=== PATIENT | male | born 1950 | race Caucasian/White ===

== ENCOUNTER 2017-06-23 11:48 | Day surgery (SDC) | payer MEDICARE, OTHER ==
[~2017-06-23] VITALS: Ht 180.3 cm; Wt 91.6 kg
[2017-06-23] VITALS (10 sets, daily range): BP systolic 98–1250; BP diastolic 62–82; PULSE 68–88; TEMP 97.8–98.3
[2017-06-23] MEDS ORDERED: PRINZIDE 25 MG-1 TAB PO (12:52)
[2017-06-23] MEDS ORDERED: ADDERALL XR30 MG PO (12:52)
[2017-06-23] MEDS ORDERED: ZOLOFT 100MG100 MG PO (12:53)
[2017-06-23] MEDS ORDERED: ZOCOR 20MG20 MG PO (12:53)
[2017-06-23] MEDS ORDERED: PRILOSEC 20MG20 MG PO (12:54)
[2017-06-23] MEDS ORDERED: TESSALON P100 MG/CAP PO (12:54)
[2017-06-24 00:37] VITALS: BP 108/60; PULSE 83; TEMP 98.3
[2017-06-24 04:00] VITALS: BP 106/64; PULSE 81; TEMP 97.5
[2017-06-24 09:25] VITALS: BP 137/75; PULSE 80; TEMP 97.7
[2017-06-24 14:06] VITALS: BP 118/82; PULSE 84; TEMP 98.3
== END 2017-06-24 17:35 | disposition home or self-care (01) ==
LOC: SDCO 11:48 → SURG 16:30 → SDCO 06-24 17:35
DX: C67.4 Malignant neoplasm of posterior wall of bladder (principal); K21.9 Gastro-esophageal reflux disease without esophagitis; Z86.73 Personal history of transient ischemic attack (TIA), and cerebral infarction without residual deficits; F17.210 Nicotine dependence, cigarettes, uncomplicated; F90.9 Attention-deficit hyperactivity disorder, unspecified type; I10 Essential (primary) hypertension; F32.9 Major depressive disorder, single episode, unspecified; Z68.27 Body mass index [BMI] 27.0-27.9, adult
CPT/HCPCS: OP; J0690; J1100; J2270; J2405; J2704; J3010; J7120; J9280; Q9967

== ENCOUNTER 2018-04-02 21:26 | Inpatient (IN) | payer MEDICARE, OTHER ==
[~2018-04-02] VITALS: Ht 180.3 cm; Wt 96.2 kg
[~2018-04-02 21:26] MED LIST: ADDERALL XR30 MG PO; PRILOSEC 20MG20 MG PO; PRINZIDE 25 MG-1 TAB PO; TESSALON P100 MG/CAP PO; ZOCOR 20MG20 MG PO; ZOLOFT 100MG100 MG PO
[2018-04-02 21:55] LABS: ARTERIAL BLD GAS O2 SATURATION 96.3 % (92-100); ARTERIAL BLD GAS TCO2 CT 27.5; ARTERIAL BLOOD GAS BASE EXCESS 2.8 (-2-2); ARTERIAL BLOOD GAS HCO3 26.3 meq/L (22-26); ARTERIAL BLOOD GAS PCO2 37.2 mmHg (35-45); ARTERIAL BLOOD GAS PO2 85.3 mmHg (80-100); ARTERIAL BLOOD GAS pH 7.47 (7.35-7.45)
[2018-04-02 21:58] LABS: BASO % 0.1 % (0.0-2.0); GRAN # 7.3 (1.4-6.5); HEMATOCRIT 45.3 % (42.0-52.0); HEMOGLOBIN 15.8 g/dl (13.5-18.0); LYMPH # 1.4 (1.2-3.4); LYMPH % 14.3 % (20.0-51.0); MEAN CELL VOLUME 94 fl (80.0-100.0); MEAN CORPUSCULAR HEMOGLOBIN 33 pg (27.0-31.0); MEAN CORPUSCULAR HGB CONC 35 g/dl (33.0-37.0); MEAN PLATELET VOLUME 11.8 fl (7.4-10.4); MONO # 0.9 (0.1-0.6); MONO % 9.2 % (1.7-9.3); PLATELET COUNT 119 K/mm3 (130-400); RED BLOOD COUNT 4.81 M/mm3 (4.20-5.60); REDCELL DISTRIBUTION WIDTH-CV 13.9 % (11.5-14.5)
[2018-04-02 22:05] LABS: INR 1.3 (0.8-3.0); PROTHROMBIN TIME 14.8 SECONDS (9.7-12.8)
[2018-04-02 22:06] LABS: ALANINE AMINOTRANSFERASE 46 U/L (21-72); ALBUMIN 4.3 gm/dL (3.5-5.0); ALKALINE PHOSPHATASE 78 U/L (50-136); ANION GAP 10 mmol/L (7-16); AST,SGOT 43 U/L (15-37); BILIRUBIN,TOTAL 1.2 mg/dL (0.0-1.0); BLOOD UREA NITROGEN 18 mg/dL (9-20); CALCIUM 8.5 mg/dL (8.4-10.2); CARBON DIOXIDE 32 mmol/L (22-30); CHLORIDE 92 mmol/L (98-107); CREATININE, serum 0.74 mg/dL (0.66-1.25); GLUCOSE 123 mg/dL (74-106); POTASSIUM 3.3 mmol/L (3.4-5.0); SODIUM 134 mmol/L (137-145); TOTAL PROTEIN 7.8 gm/dL (6.4-8.2)
[2018-04-02 22:17] LABS: TROPONIN-I < 0.012 ng/mL (0.000-0.034)
[2018-04-02] MEDS ORDERED: STRATTERA 10MG10 MG (22:29)
[2018-04-03] VITALS (8 sets, daily range): BP systolic 112–163; BP diastolic 59–68; PULSE 66–92; TEMP 97.4–99.2
[2018-04-03 05:46] LABS: BASO % 0.1 % (0.0-2.0); GRAN # 6.2 (1.4-6.5); GRAN % 86.8 % (42.2-75.2); HEMATOCRIT 43.9 % (42.0-52.0); HEMOGLOBIN 14.9 g/dl (13.5-18.0); LYMPH # 0.8 (1.2-3.4); LYMPH % 10.7 % (20.0-51.0); MEAN CELL VOLUME 95 fl (80.0-100.0); MEAN CORPUSCULAR HEMOGLOBIN 32 pg (27.0-31.0); MEAN CORPUSCULAR HGB CONC 34 g/dl (33.0-37.0); MEAN PLATELET VOLUME 12.7 fl (7.4-10.4); MONO # 0.2 (0.1-0.6); MONO % 2.1 % (1.7-9.3); PLATELET COUNT 115 K/mm3 (130-400); RED BLOOD COUNT 4.61 M/mm3 (4.20-5.60)
[2018-04-03 06:06] LABS: CALCIUM 8.3 mg/dL (8.4-10.2); CHOLESTEROL RISK RATIO 5.2; CREATININE, serum 0.9 mg/dL (0.66-1.25); MAGNESIUM 2.7 mg/dL (1.6-2.3); POTASSIUM 3.5 mmol/L (3.4-5.0)
[2018-04-03 07:09] LABS: BAND 25 % (0-10); LYMPHOCYTE 9 % (20.0-51.0); NEUTROPHILS 66 % (42.0-75.2); PLATELET ESTIMATE DECREASED (NORMAL)
[2018-04-04 04:16] VITALS: BP 113/54; PULSE 79; TEMP 97.6
[2018-04-04 07:34] VITALS: BP 120/61; PULSE 73; TEMP 97.8
[2018-04-04 10:56] LABS: CREATININE, serum 0.9 mg/dL (0.66-1.25); POTASSIUM 3.8 mmol/L (3.4-5.0)
[2018-04-04 11:04] VITALS: BP 119/57; PULSE 80; TEMP 97.9
[2018-04-04 15:11] VITALS: BP 117/55; PULSE 85; TEMP 98.5
[2018-04-04 20:10] VITALS: BP 103/77; PULSE 87; TEMP 97.3
[2018-04-05 00:48] VITALS: BP 135/82; PULSE 65; TEMP 97.5
[2018-04-05 03:50] VITALS: BP 133/57; PULSE 89; TEMP 97.7
[2018-04-05 07:22] VITALS: BP 120/62; PULSE 77; TEMP 97.9
[2018-04-05 07:59] LABS: CALCIUM 9.1 mg/dL (8.4-10.2); CREATININE, serum 0.85 mg/dL (0.66-1.25); POTASSIUM 3.1 mmol/L (3.4-5.0)
[2018-04-05 09:53] LABS: HEMOGLOBIN 13.6 g/dl (13.5-18.0)
[2018-04-05] MEDS ORDERED: LEVAQUIN 750MG750 M1 PO (12:48)
[2018-04-05] MEDS ORDERED: CLEOCIN HCL300 MG PO (12:50)
[2018-04-05 12:52] VITALS: BP 138/60; PULSE 89; TEMP 98.2
[2018-04-05] MEDS ORDERED: PROAIR HFA0.09 MG/AC IH (12:54)
[2018-04-05] MEDS ORDERED: PERFOROMIS20 MCG/2 M IH (12:55)
[2018-04-05] MEDS ORDERED: FLOVENT 110MCG7.9 GM IH (12:55)
[2018-04-05] MEDS ORDERED: PREDNISONE20 MG PO ×2 (12:56→16:51)
[2018-04-05] MEDS ORDERED: RT ADVAIR 228 DISKUS IH (16:51)
[2018-04-05 18:00] VITALS: BP 128/72; PULSE 83; TEMP 98.2
== END 2018-04-05 19:28 | disposition home or self-care (01) | DRG 193 ==
LOC: COL.ER 21:26 → MEDICAL 23:55
PROVIDERS: Emergency Medicine; Internal Medicine; Nurse Practitioner; Physician Assistant
DX: J12.0 Adenoviral pneumonia (principal); J96.01 Acute respiratory failure with hypoxia; J44.0 Chronic obstructive pulmonary disease with (acute) lower respiratory infection; J44.1 Chronic obstructive pulmonary disease with (acute) exacerbation; I10 Essential (primary) hypertension; E78.5 Hyperlipidemia, unspecified; Z85.51 Personal history of malignant neoplasm of bladder; F17.210 Nicotine dependence, cigarettes, uncomplicated; E87.6 Hypokalemia
CPT/HCPCS: 99223-AI; 99232-AI; 99233-AI; A4216; J0456; J0696; J1650; J1956; J2543; J2765; J2930; J3475; J7030; J7050; Q9967

== ENCOUNTER → 2018-04-15 | Outpatient (CLI) | payer MEDICARE, OTHER ==
[~2018-04-15] MED LIST changes: +CLEOCIN HCL300 MG PO; +FLOVENT 110MCG7.9 GM IH; +LEVAQUIN 750MG750 M1 PO; +PERFOROMIS20 MCG/2 M IH; +PREDNISONE20 MG PO; +PROAIR HFA0.09 MG/AC IH; +RT ADVAIR 228 DISKUS IH; +STRATTERA 10MG10 MG
== END ==
LOC: COL.RAD 09:45
DX: J43.9 Emphysema, unspecified (principal); J18.9 Pneumonia, unspecified organism